=== PATIENT | male | born 1950 | race Caucasian/White ===

== ENCOUNTER → 2016-06-26 | Outpatient (CLI) | payer MEDICAID | END | disposition home or self-care (01) | LOC: LABWHC1 09:48 | PROVIDERS: ATTEND Internal Medicine | DX: D47.2 Monoclonal gammopathy (principal) | CPT/HCPCS: 36415; 84165; 86334 ==

== ENCOUNTER 2016-09-25 07:25 | Day surgery (SDC) | payer MEDICAID, OTHER ==
[2016-09-25 08:07] VITALS: RESP 16; TEMP 97.6
[2016-09-25] MEDS: CYCLOPENTOLATE 1% OPHTH SOLN 2 ML BTL OP ONE ×3 (08:11→08:35)
[2016-09-25] MEDS ORDERED: LACTATED RINGERS 1,000 ML IV SCH (08:18)
[2016-09-25] MEDS ORDERED: LIDOCAINE 1% 20 ML VIAL (10MG/ML) FOR IV START INTRADERMA PRN (08:18)
[2016-09-25] MEDS: FLURBIPROFEN 0.03% OPHTH DROPS 2.5 ML BTL OP ONE ×3 (08:19→08:38)
[2016-09-25] MEDS ORDERED: LIDOCAINE 1% 20 ML VIAL (10MG/ML) FOR IV START INTRADERMA ONE (08:21)
[2016-09-25] MEDS: PHENYLEPHRINE 10% OPHTH DROPS 5 ML BTL OP ONE ×3 (08:22→08:41)
[2016-09-25] MEDS ORDERED: LIDOCAINE 1% INJ 10MG/ML (20 ML MDV) ONE (08:52)
[2016-09-25] MEDS ORDERED: PROPOFOL 10 MG/ML 20 ML VIAL IV ONE (08:52)
[2016-09-25] MEDS ORDERED: TETRACAINE 0.5% OPHTH (PF) DROPS 4 ML BTL LEFT EYE ONE (08:52)
[2016-09-25] MEDS ORDERED: EPINEPHrine (PF) 0.5 ML in BALANCED SALT IRRIG SOLN COMB2 500 ML IRRIGATION ONE (09:07)
[2016-09-25] MEDS ORDERED: BALANCED SALT IRRIG SOLN COMB2 15 ML IRRIG.SOLN IRRIGATION ONE (09:15)
[2016-09-25] MEDS ORDERED: HYALURONATE SODIUM INTRAOCULAR 1 EACH SYRINGE (10MG/ML) INTRAOCULA ONE (09:16)
--- NOTE | 2016-09-25 09:18 | P.OP ---
Date of Procedure: 09/25/16 Procedure(s) Performed: PREOPERATIVE DIAGNOSIS: Cataract, left eye. POSTOPERATIVE DIAGNOSIS: Cataract, left eye. OPERATION: Phacoemulsification cataract, left eye. DESCRIPTION OF PROCEDURE: The patient was taken to the preoperative holding area. Intravenous Propofol was given so as to bring about adequate sedation. The following mixture was given for local anesthesia: 5 mL of 2% lidocaine, 5 mL of 0.75% Marcaine, and 1 mL of Wydase. Approximately 4 mL was injected in the retrobulbar space of the surgical eye. Additional 1 mL was then directed to the temporal area of the surgical eye. This was performed to allow adequate neurological block of the facial muscles. The patient was revived and then taken into the operative room. The patient was prepped and draped in the usual sterile manner for the operative eye. A lid speculum was put into position. The conjunctiva was resected back from the limbus in the 12 o'clock position. Bleeding was controlled with electrocautery. A #69 blade was then used and a half-thickness scleral incision approximately 1-mm posterior to the limbus was made on bare sclera. This was shelved in the clear cornea using a crescent knife. The steep axis of astigmatism was marked using a pre-inked corneal marking device. Next a 15-degree blade was used to make a stab incision at the 3 o'clock position at the corneolimbal interface. Keratome blade was then used and the superior wound was extended into the anterior chamber. Viscoelastic was injected into the anterior chamber and to maintain its form. Next, a cystotome was used and a continuous anterior capsulotomy was made without difficulty. Hydrodissection using a blunt cannula and BSS was performed. Phaco probe was then employed and a groove extending from 12 to 6 o' clock in the lens was created. A Adilson wand was used through the stab incision so as to perform a divide and conquer technique. Next an irrigation aspiration probe was utilized and any residual cortex was removed from the eye. Again, viscoelastic was injected into the anterior chamber. An GUME Symfony posterior chamber lens implant was placed in the cartridge and injected into the anterior chamber without difficulty. The Sinskey hook was utilized to spin the lens into position and this was again performed without any difficulty. The irrigation and aspiration probe was again employed and any residual viscoelastic was removed from the eye. Then BSS was injected into the limbal stab incision and the anterior chamber re-inflated. The conjunctiva was reapproximated using electrocautery. One drop of 0.25% Timoptic was placed over the corneal along with TobraDex ophthalmic ointment. Two sterile patches and a Tobar eye shield were taped into position. The patient was transported to the recovery room in stable condition. Pathology: none sent Condition: stable Disposition: same day
[2016-09-25 09:46] VITALS: BP 149/88; PULSE 46
[2016-09-25] MEDS ORDERED: GENTAMICIN/PREDNISOL AC OPHTH OINT 3.5GM OPHTHALMIC ONE (23:00)
[2016-09-25] MEDS ORDERED: TIMOLOL 0.5% OPHTH SOLN (PF) 0.2 ML DROPERETTE OP ONE (23:00)
[2016-09-25] MEDS ORDERED: BUPIVACAINE (PF) 0.75% 5 ML, LIDOCAINE 4% (PF) 5 ML, HYALURONIDASE, HUMAN RECOMB 150 UNIT MISCELLANE ONE ×3 (23:00)
== END 2016-09-25 10:06 | disposition home or self-care (01) ==
LOC: OR 07:25
PROVIDERS: ATTEND Ophthalmology
DX: H26.9 Unspecified cataract (principal); H52.201 Unspecified astigmatism, right eye; I10 Essential (primary) hypertension; E78.5 Hyperlipidemia, unspecified; N40.0 Benign prostatic hyperplasia without lower urinary tract symptoms; F32.9 Major depressive disorder, single episode, unspecified; Z79.82 Long term (current) use of aspirin; Z79.899 Other long term (current) drug therapy; Z88.0 Allergy status to penicillin; Z88.2 Allergy status to sulfonamides
CPT/HCPCS: 66984; V2787; C1780; J2001 ×2; J3470; J0171; J2704

== ENCOUNTER 2016-11-06 06:39 | Day surgery (SDC) | payer MEDICAID ==
[2016-11-02 16:46] VITALS: BMI 23.1
[2016-11-06] MEDS: FLURBIPROFEN 0.03% OPHTH DROPS 2.5 ML BTL OP ONE ×3 (06:09→07:09)
[~2016-11-06 06:39] MED LIST: LACTATED RINGERS 1,000 ML IV SCH; LIDOCAINE 1% 20 ML VIAL (10MG/ML) FOR IV START INTRADERMA PRN; ONDANSETRON 4 MG/2 ML VIAL IVP PRN
[2016-11-06] MEDS: CYCLOPENTOLATE 1% OPHTH SOLN 2 ML BTL OP ONE ×2 (06:48→07:06)
[2016-11-06 06:49] VITALS: RESP 16; TEMP 97.2
[2016-11-06] MEDS: PHENYLEPHRINE 10% OPHTH DROPS 5 ML BTL OP ONE ×2 (06:54→07:03)
[2016-11-06] MEDS ORDERED: MIDAZOLAM 2 MG/2 ML VIAL ONE (07:46)
[2016-11-06] MEDS ORDERED: LIDOCAINE 1% INJ 10MG/ML (20 ML MDV) ONE (07:46)
[2016-11-06] MEDS ORDERED: PROPOFOL 10 MG/ML 20 ML VIAL IV ONE (07:46)
[2016-11-06] MEDS ORDERED: BALANCED SALT IRRIG SOLN COMB2 15 ML IRRIG.SOLN INTRAOCULA ONE (07:52)
[2016-11-06] MEDS ORDERED: TETRACAINE 0.5% OPHTH (PF) DROPS 4 ML BTL RIGHT EYE ONE (07:53)
[2016-11-06] MEDS ORDERED: HYALURONATE SODIUM INTRAOCULAR 1 EACH SYRINGE (10MG/ML) INTRAOCULA ONE (07:53)
[2016-11-06] MEDS ORDERED: EPINEPHrine (PF) 0.5 ML in BALANCED SALT IRRIG SOLN COMB2 500 ML IRRIGATION ONE (08:01)
--- NOTE | 2016-11-06 08:17 | P.OP ---
Date of Procedure: 11/06/16 Preoperative Diagnosis: Postoperative Diagnosis: Procedure(s) Performed: PREOPERATIVE DIAGNOSIS: Cataract, right eye. POSTOPERATIVE DIAGNOSIS: Cataract, right eye. OPERATION: Phacoemulsification cataract, right eye. DESCRIPTION OF PROCEDURE: The patient was taken to the preoperative holding area. Intravenous Propofol was given so as to bring about adequate sedation. The following mixture was given for local anesthesia: 5 mL of 2% lidocaine, 5 mL of 0.75% Marcaine, and 1 mL of Wydase. Approximately 4 mL was injected in the retrobulbar space of the surgical eye. Additional 1 mL was then directed to the temporal area of the surgical eye. This was performed to allow adequate neurological block of the facial muscles. The patient was revived and then taken into the operative room. The patient was prepped and draped in the usual sterile manner for the operative eye. A lid speculum was put into position. The conjunctiva was resected back from the limbus in the 12 o'clock position. Bleeding was controlled with electrocautery. A #69 blade was then used and a half-thickness scleral incision approximately 1-mm posterior to the limbus was made on bare sclera. This was shelved in the clear cornea using a crescent knife. Next a 15-degree blade was used to make a stab incision at the 3 o' clock position at the corneolimbal interface. The steep axis of astigmatism was marked using a pre-inked corneal marking device. Keratome blade was then used and the superior wound was extended into the anterior chamber. Viscoelastic was injected into the anterior chamber and to maintain its form. Next, a cystotome was used and a continuous anterior capsulotomy was made without difficulty. Hydrodissection using a blunt cannula and BSS was performed. Phaco probe was then employed and a groove extending from 12 to 6 o' clock in the lens was created. A Adislon wand was used through the stab incision so as to perform a divide and conquer technique. Next an irrigation aspiration probe was utilized and any residual cortex was removed from the eye. Again, viscoelastic was injected into the anterior chamber. An GUME Symfony toric posterior chamber lens implant was placed in the cartridge and injected into the anterior chamber without difficulty. The Sinskey hook was utilized to spin the lens into position and this was again performed without any difficulty. The irrigation and aspiration probe was again employed and any residual viscoelastic was removed from the eye. Then BSS was injected into the limbal stab incision and the anterior chamber re-inflated. The conjunctiva was reapproximated using electrocautery. One drop of 0.25% Timoptic was placed over the corneal along with TobraDex ophthalmic ointment. Two sterile patches and a Tobar eye shield were taped into position. The patient was transported to the recovery room in stable condition. Implants: Pathology: none sent Condition: stable Disposition: same day Indications for Procedure: Operative Findings: Description of Procedure:
[2016-11-06 08:36] VITALS: BP 135/82; PULSE 48
[2016-11-06] MEDS ORDERED: TIMOLOL 0.5% OPHTH SOLN (PF) 0.2 ML DROPERETTE OP ONE (23:00)
[2016-11-06] MEDS ORDERED: GENTAMICIN/PREDNISOL AC OPHTH OINT 3.5GM OPHTHALMIC ONE (23:00)
[2016-11-06] MEDS ORDERED: BUPIVACAINE (PF) 0.75% 5 ML, LIDOCAINE 4% (PF) 5 ML, HYALURONIDASE, HUMAN RECOMB 150 UNIT MISCELLANE ONE ×3 (23:00)
== END 2016-11-06 08:57 | disposition home or self-care (01) ==
LOC: OR 06:39
PROVIDERS: ATTEND Ophthalmology
DX: H26.9 Unspecified cataract (principal); I10 Essential (primary) hypertension; F32.9 Major depressive disorder, single episode, unspecified; K21.9 Gastro-esophageal reflux disease without esophagitis; N42.9 Disorder of prostate, unspecified; Z88.2 Allergy status to sulfonamides; Z88.0 Allergy status to penicillin; Z79.82 Long term (current) use of aspirin; Z79.899 Other long term (current) drug therapy; Z82.49 Family history of ischemic heart disease and other diseases of the circulatory system
CPT/HCPCS: 66984; V2787; C1780; J2001 ×2; J2250; J3470; J0171; J2704

== ENCOUNTER → 2016-12-18 | Outpatient (CLI) | payer MEDICAID ==
[2016-12-18 10:28] LABS: ALT 31 U/L (21-72); AST 26 U/L (17-59); Alkaline Phosphatase 44 U/L (38-126); Anion Gap 11 mmol/L; Blood Urea Nitrogen 24 mg/dL (9-20); Calcium 9.5 mg/dL (8.4-10.2); Carbon Dioxide 24 mmol/L (22-30); Chloride 110 mmol/L (98-107); Cholesterol 162 mg/dL (<200); Glucose 90 mg/dL (74-99); HDL Cholesterol 55 mg/dL (40-60); Non-African American GFR(MDRD) >60 (>60 ml/min/1.73 sqM); Sodium 145 mmol/L (137-145); Total Bilirubin 0.6 mg/dL (0.2-1.3); Total Protein 9.1 g/dL (6.3-8.2); Triglycerides 110 mg/dL (<150)
[2016-12-18 10:36] LABS: Basophils % (A) 1 %; CH 31.7; CHCM 32.3; Eosinophils # (A) 0.2 k/uL (0-0.7); Eosinophils % (A) 4 %; HCT 40.6 % (39.0-53.0); HDW 2.03; HGB 13.5 gm/dL (13.0-17.5); Large Platelets Flag Moderate; Luc # (Auto) 0.16; Luc % (Auto) 2; Lymphocytes # (A) 1.6 k/uL (1.0-4.8); Lymphocytes % (A) 25 %; MCH 32.8 pg (25.0-35.0); MCHC 33.3 g/dL (31.0-37.0); MCV 98.6 fL (80.0-100.0); Mean Platelet Volume 12.3; Monocytes # (A) 0.4 k/uL (0-1.0); Monocytes % (A) 7 %; Neutrophils % (A) 62 %; RBC 4.12 m/uL (4.30-5.90); RDW 13.5 % (11.5-15.5); WBC 6.5 k/uL (3.8-10.6); WBC (Perox) 6.19
[2016-12-18 10:56] LABS: C Reactive Protein <5.0 mg/L (<10.0)
[2016-12-18 11:16] LABS: Hepatitis C Virus IgG Ab Negative (Negative); Hepatitis C Virus IgG Index 0.32
[2016-12-18 11:20] LABS: Prostate Specific Antigen 1.33 ng/mL (0.00-4.00)
[2016-12-18 11:30] LABS: Large Platelets Present; Manual Review Performed; RBC Morphology Normal
[2016-12-18 12:15] LABS: Erythrocyte Sedimentation Rate 41 mm/hr (0-15)
== END | disposition home or self-care (01) ==
LOC: LABWHC1 08:50
PROVIDERS: ATTEND Internal Medicine
DX: E78.5 Hyperlipidemia, unspecified (principal); K90.0 Celiac disease; I10 Essential (primary) hypertension; E55.9 Vitamin D deficiency, unspecified; Z13.9 Encounter for screening, unspecified; Z12.5 Encounter for screening for malignant neoplasm of prostate
CPT/HCPCS: 36415; 80053; 80061; 82306; 84153; 84165; 85025; 85652; 86140; 86803

== ENCOUNTER → 2017-03-19 | Outpatient (CLI) | payer MEDICAID | END | disposition home or self-care (01) | LOC: LABWHC1 09:23 | PROVIDERS: ATTEND Internal Medicine | DX: K52.9 Noninfective gastroenteritis and colitis, unspecified (principal) | CPT/HCPCS: 87328; 87329 ==

== ENCOUNTER → 2017-04-05 | Outpatient (CLI) | payer MEDICAID | END | disposition home or self-care (01) | LOC: PTMAIN 09:29 | PROVIDERS: ATTEND Otolaryngology | DX: J37.0 Chronic laryngitis (principal); K21.9 Gastro-esophageal reflux disease without esophagitis | CPT/HCPCS: 31579 ==

== ENCOUNTER 2017-04-23 11:28 | Day surgery (SDC) | payer MEDICAID ==
[2017-04-16 15:41] VITALS: BMI 23.6
[~2017-04-23 11:28] MED LIST changes: -LIDOCAINE 1% 20 ML VIAL (10MG/ML) FOR IV START INTRADERMA PRN; -ONDANSETRON 4 MG/2 ML VIAL IVP PRN
[2017-04-23 12:04] VITALS: RESP 16; TEMP 98.1
[2017-04-23] MEDS ORDERED: LIDOCAINE 1% 20 ML VIAL (10MG/ML) FOR IV START INTRADERMA ONE (12:06)
[2017-04-23] MEDS ORDERED: PROPOFOL 10 MG/ML 20 ML VIAL IV ONE (12:13)
[2017-04-23] MEDS ORDERED: GLYCOPYRROLATE 0.2 MG/ML 2 ML VIAL ONE (12:13)
[2017-04-23] MEDS ORDERED: LIDOCAINE 1% INJ 10MG/ML (20 ML MDV) ONE (12:13)
--- NOTE | 2017-04-23 12:35 | P.PCN ---
Date of Procedure: 04/23/17 Preoperative Diagnosis: Celiac disease Postoperative Diagnosis: Celiac disease Procedure(s) Performed: EGD with biopsy Anesthesia: MAC Surgeon: Vasile Lacy Condition: stable Disposition: PACU Indications for Procedure: Patient has a history of celiac disease he has been having recent episodes of diarrhea which is unusual for him he discovers benefits alternatives to EGD with biopsy and clearance of bleeding infection damage surrounding tissue need further operation he stated he understood these risks agreed and consented the procedure informed consent was obtained Operative Findings: Findings consistent with celiac disease Description of Procedure: Patient brought to the Endo suite remained in this left lateral decubitus position underwent sedation per department of anesthesia.Endoscope was passed through the oropharynx down the esophagus with ease through the stomach and the first and second portion of duodenum. There was some inflammation in the duodenum this was biopsied with cold forceps biopsies. Multiple biopsies were taken of the first and second portion. Scope was then withdrawn and the gastric antrum where biopsy was taken to rule out H. pylori. The scope was retroflexed and no abnormalities were noted. The scope was then slowly withdrawn into the esophagus the GE junction was within normal limits however there was a small 5 mm mucosal lesions in the esophagus. Several of these were biopsied. Patient tolerated procedure well there is no apparent comp locations
--- NOTE | 2017-04-23 13:00 | P.OP ---
Date of Procedure: 04/23/17 Preoperative Diagnosis: Screening. Family history of colon CA in a parent. History of celiac disease. Postoperative Diagnosis: Fairly normal colonoscopy. No evidence of any significant inflammatory bowel disease or polyps or neoplasms. Procedure(s) Performed: Colonoscopy and cold biopsies of the descending colon and rectum. Surgeon: Abdiaziz Mejía Estimated Blood Loss (ml): 0 Pathology: other (Descending colon and rectal biopsies) Condition: stable Disposition: same day Indications for Procedure: Screening. Family history of colon CA in apparent. Personal history of celiac disease with the change in bowel habits related to diet. Operative Findings: Fairly normal colonoscopy. Inflammatory condition. No polyps or neoplasms. Description of Procedure: With the patient in the left lateral position rectal digital examination was normal. There are no palpable masses. No prostatic masses. The video colonoscope was inserted transanally and advanced all the way to the cecum which was entered without visualized the as was the ileocecal valve and appendiceal orifice. The mucosa were thoroughly examined. Findings normal colonoscopy. No polyps neoplasms or any other mucosal abnormalities were found. Recommend a follow-up colonoscopy in about 5 years. Continue gluten-free diet.
[2017-04-23 13:05] VITALS: PULSE 63
[2017-04-23 13:12] VITALS: BP 168/89
== END 2017-04-23 13:36 | disposition home or self-care (01) ==
LOC: ORWHC2ENDO 11:28
PROVIDERS: ATTEND Surgery
DX: R19.7 Diarrhea, unspecified (principal); K90.0 Celiac disease; K29.80 Duodenitis without bleeding; K29.50 Unspecified chronic gastritis without bleeding; Z80.0 Family history of malignant neoplasm of digestive organs; E78.5 Hyperlipidemia, unspecified; I10 Essential (primary) hypertension; K21.9 Gastro-esophageal reflux disease without esophagitis; G57.00 Lesion of sciatic nerve, unspecified lower limb; Z79.899 Other long term (current) drug therapy; Z88.0 Allergy status to penicillin; Z88.2 Allergy status to sulfonamides
CPT/HCPCS: 88305; 88342; 45380; 43239; J2001; J2704

== ENCOUNTER → 2017-05-21 | Outpatient (CLI) | payer MEDICAID ==
[2017-05-21 09:39] LABS: Basophils % (A) 1 %; CHCM 33.3; Eosinophils # (A) 0.2 k/uL (0-0.7); Eosinophils % (A) 3 %; HCT 41.1 % (39.0-53.0); HGB 13.5 gm/dL (13.0-17.5); Luc # (Auto) 0.26; Luc % (Auto) 4; Lymphocytes # (A) 1.8 k/uL (1.0-4.8); Lymphocytes % (A) 26 %; MCH 31.7 pg (25.0-35.0); MCHC 32.8 g/dL (31.0-37.0); MCV 96.7 fL (80.0-100.0); Mean Platelet Volume 9.7; Monocytes # (A) 0.5 k/uL (0-1.0); Monocytes % (A) 7 %; Neutrophils # (A) 4.2 k/uL (1.3-7.7); Neutrophils % (A) 60 %; RBC 4.25 m/uL (4.30-5.90); RDW 12.9 % (11.5-15.5); WBC (Perox) 6.96
[2017-05-21 09:54] LABS: ALT 49 U/L (21-72); AST 29 U/L (17-59); Alkaline Phosphatase 45 U/L (38-126); Anion Gap 8 mmol/L; Blood Urea Nitrogen 27 mg/dL (9-20); Calcium 9.9 mg/dL (8.4-10.2); Carbon Dioxide 25 mmol/L (22-30); Chloride 108 mmol/L (98-107); Glucose 95 mg/dL (74-99); Non-African American GFR(MDRD) 51 (>60 ml/min/1.73 sqM); Potassium 4.8 mmol/L (3.5-5.1); Sodium 141 mmol/L (137-145); Total Bilirubin 0.8 mg/dL (0.2-1.3)
[2017-05-21 11:19] LABS: Erythrocyte Sedimentation Rate 42 mm/hr (0-15)
== END | disposition home or self-care (01) ==
LOC: LABWHC1 09:00
PROVIDERS: ATTEND Internal Medicine
DX: K90.0 Celiac disease (principal); K52.9 Noninfective gastroenteritis and colitis, unspecified
CPT/HCPCS: 36415; 80053; 84165; 84443; 85025; 85652

== ENCOUNTER → 2017-05-28 | Outpatient (CLI) | payer MEDICAID | END | disposition home or self-care (01) | LOC: LABWHC1 17:08 | PROVIDERS: ATTEND Internal Medicine | DX: R79.89 Other specified abnormal findings of blood chemistry (principal) | CPT/HCPCS: 36415; 82565; 84520 ==

== ENCOUNTER → 2017-06-22 | Outpatient (CLI) | payer MEDICAID ==
[2017-06-22 12:34] LABS: Blood Urea Nitrogen 26 mg/dL (9-20)
== END | disposition home or self-care (01) ==
LOC: LABWHC1 11:55
PROVIDERS: ATTEND Urology
DX: R79.89 Other specified abnormal findings of blood chemistry (principal)
CPT/HCPCS: 36415; 82565; 84520

== ENCOUNTER → 2017-07-30 | Outpatient (CLI) | payer MEDICAID | LOC: LABWHC1 13:19 | PROVIDERS: ATTEND Urology | DX: N17.9 Acute kidney failure, unspecified (principal) | CPT/HCPCS: 36415; 82565; 84520 ==

== ENCOUNTER → 2017-11-01 | Outpatient (CLI) | payer MEDICAID ==
[2017-11-01 10:54] LABS: Appearance,Urine Clear (Clear); Bilirubin,Urine Negative (Negative); Blood,Urine Negative (Negative); Color,Urine Light Yellow; Glucose,Urine (UA) Negative (Negative); Ketones,Urine Negative (Negative); Leukocyte Esterase,Urine Small (Negative); Mucus,Urine Rare /hpf; Nitrite,Urine Negative (Negative); PH, Urine 5.5 (5.0-8.0); Protein,Urine Negative (Negative); Specific Gravity,Urine 1.008 (1.001-1.035); Urobilinogen,Urine <2.0 mg/dL (<2.0); WBC,Urine 9 /hpf (0-5)
[2017-11-01 11:01] LABS: Basophils % (A) 0 %; Eosinophils # (A) 0.2 k/uL (0-0.7); Eosinophils % (A) 3 %; HCT 42.6 % (39.0-53.0); HGB 13.9 gm/dL (13.0-17.5); Lymphocytes # (A) 1.6 k/uL (1.0-4.8); Lymphocytes % (A) 24 %; MCH 31.4 pg (25.0-35.0); MCHC 32.6 g/dL (31.0-37.0); MCV 96.2 fL (80.0-100.0); Mean Platelet Volume 11.2; Monocytes # (A) 0.5 k/uL (0-1.0); Monocytes % (A) 7 %; Neutrophils # (A) 4.2 k/uL (1.3-7.7); Neutrophils % (A) 63 %; Platelet Count 145 k/uL (150-450); RBC 4.43 m/uL (4.30-5.90); RDW 13.2 % (11.5-15.5); WBC 6.7 k/uL (3.8-10.6)
[2017-11-01 11:02] LABS: Albumin 4.9 g/dL (3.5-5.0); Calcium 9.8 mg/dL (8.4-10.2); Potassium 5.1 mmol/L (3.5-5.1); Total Bilirubin 0.8 mg/dL (0.2-1.3)
[2017-11-01 13:04] LABS: Erythrocyte Sedimentation Rate 86 mm/hr (0-15)
[2017-11-01 18:55] LABS: Vitamin D 25 Hydroxy 48.2 ng/mL (30.0-100.0)
[2017-11-01 19:09] LABS: Protein, Total 9.6 g/dL (6.2-8.2)
[2017-11-04 11:06] LABS: Oat IgE Class CLASS 0
[2017-11-04 11:25] LABS: Albumin 4.77 g/dL (3.80-4.90); Gamma Globulin 3.21 g/dL (0.70-1.50)
[2017-11-05 12:06] LABS: Oat IgG 5.5 mcg/mL (< 2.0)
== END | disposition home or self-care (01) ==
LOC: LABWHC1 10:06
PROVIDERS: ATTEND Internal Medicine
DX: K90.0 Celiac disease (principal); I10 Essential (primary) hypertension; E55.9 Vitamin D deficiency, unspecified
CPT/HCPCS: 36415; 80053; 80061; 81001; 82306; 82607; 84165; 85025; 85652; 86001; 86003

== ENCOUNTER → 2018-04-08 | Outpatient (CLI) | payer MEDICARE ==
[2018-04-08 16:34] LABS: Basophils % (A) 0 %; Eosinophils # (A) 0.1 k/uL (0-0.7); Eosinophils % (A) 1 %; HCT 43.6 % (39.0-53.0); Lymphocytes # (A) 1.7 k/uL (1.0-4.8); Lymphocytes % (A) 20 %; MCH 31.9 pg (25.0-35.0); MCV 99.4 fL (80.0-100.0); Mean Platelet Volume 10.9; Monocytes # (A) 0.5 k/uL (0-1.0); Monocytes % (A) 6 %; Neutrophils % (A) 70 %; Platelet Count 134 k/uL (150-450); RBC 4.39 m/uL (4.30-5.90); RDW 13.2 % (11.5-15.5); WBC 8.6 k/uL (3.8-10.6)
[2018-04-08 17:33] LABS: Erythrocyte Sedimentation Rate 36 mm/hr (0-15)
[2018-04-09 11:24] LABS: Anion Gap 7.1 mmol/L (4.00-12.00); Calcium 9.6 mg/dL (8.7-10.3); Carbon Dioxide 24.9 mmol/L (21.6-31.8); Potassium 4.6 mmol/L (3.5-5.5)
== END ==
LOC: LABWHC1 15:46
PROVIDERS: ATTEND Internal Medicine
DX: K90.0 Celiac disease (principal)
CPT/HCPCS: 36415; 80048; 85025; 85652

== ENCOUNTER → 2018-08-06 | Outpatient (CLI) | payer MEDICARE | END | disposition home or self-care (01) | LOC: LABWHC1 15:47 | PROVIDERS: ATTEND Internal Medicine | DX: Z53.9 Procedure and treatment not carried out, unspecified reason (principal) ==

== ENCOUNTER → 2018-08-08 | Outpatient (CLI) | payer MEDICARE ==
[2018-08-08 10:42] LABS: Basophils % (A) 0 %; Eosinophils # (A) 0.2 k/uL (0-0.7); Eosinophils % (A) 2 %; HCT 43.3 % (39.0-53.0); Lymphocytes # (A) 1.7 k/uL (1.0-4.8); Lymphocytes % (A) 18 %; MCH 31.7 pg (25.0-35.0); MCHC 32.4 g/dL (31.0-37.0); MCV 97.7 fL (80.0-100.0); Mean Platelet Volume 9.5; Monocytes # (A) 0.7 k/uL (0-1.0); Monocytes % (A) 8 %; Neutrophils # (A) 6.4 k/uL (1.3-7.7); Neutrophils % (A) 69 %; Platelet Count 155 k/uL (150-450); RBC 4.43 m/uL (4.30-5.90); RDW 12.8 % (11.5-15.5); WBC 9.2 k/uL (3.8-10.6)
[2018-08-08 10:58] LABS: Amorphous Sediment,Urine Rare /hpf; Appearance,Urine Cloudy (Clear); Bilirubin,Urine Negative (Negative); Blood,Urine Small (Negative); Color,Urine Dark Brown; Glucose,Urine (UA) Negative (Negative); Ketones,Urine Negative (Negative); Leukocyte Esterase,Urine Large (Negative); Mucus,Urine Moderate /hpf; Nitrite,Urine Positive (Negative); PH, Urine 5.5 (5.0-8.0); Protein,Urine 1+ (Negative); RBC,Urine 17 /hpf (0-5); Specific Gravity,Urine 1.015 (1.001-1.035); Squamous Epithelial Cell,Urine <1 /hpf (0-4); WBC,Urine >182 /hpf (0-5)
[2018-08-08 13:45] LABS: Erythrocyte Sedimentation Rate 50 mm/hr (0-15)
[2018-08-08 16:53] LABS: Albumin 4.3 g/dL (3.80-4.90); Albumin/Globulin Ratio 1.13 (1.60-3.17); Anion Gap 5.7 mmol/L (4.00-12.00); Calcium 9.2 mg/dL (8.7-10.3); Carbon Dioxide 23.3 mmol/L (21.6-31.8); Globulin 3.8 g/dL (1.6-3.3); LDL Cholesterol,Calculated 59.8 mg/dL (0.0-131.0); Potassium 4.2 mmol/L (3.5-5.5); Total Protein 8.1 g/dL (6.2-8.2); VLDL Calculation 32.2 mg/dL (5.00-40.00)
[2018-08-08 17:04] LABS: Protein, Total 7.9 g/dL (6.2-8.2)
[2018-08-11 12:53] LABS: Albumin 3.78 g/dL (3.80-4.90); Gamma Globulin 2.42 g/dL (0.70-1.50)
== END ==
LOC: LABWHC1 10:10
PROVIDERS: ATTEND Internal Medicine
DX: K52.9 Noninfective gastroenteritis and colitis, unspecified (principal); K90.0 Celiac disease; I10 Essential (primary) hypertension; Z12.5 Encounter for screening for malignant neoplasm of prostate
CPT/HCPCS: 36415; 80053; 80061; 81001; 84153; 84165; 84443; 85025; 85652

== ENCOUNTER → 2018-08-29 | Outpatient (CLI) | payer MEDICARE ==
--- NOTE | 2018-08-29 18:11 | US ---
EXAMINATION TYPE: US kidneys/renal and bladder DATE OF EXAM: 08/29/2018 COMPARISON: US 05/22/2016 CLINICAL HISTORY: N39.0 UTI. EXAM MEASUREMENTS: Right Kidney: 11.3 x 5.1 x 4.3 cm Left Kidney: 11.4 x 5.5 x 5.2 cm Post Void Residual Volume: 29.9 mL Right Kidney: No hydronephrosis or masses seen Left Kidney: No hydronephrosis or masses seen Bladder: wnl Bilateral Jets seen: Yes Normal Post Void Residual: Yes There is no evidence for hydronephrosis at this point in time. No nephrolithiasis is seen. No richi s are identified. The urinary bladder is anechoic. Bilateral ureteral jets are seen. Cortical medullary differentiation maintained within the kidneys. IMPRESSION: No significant abnormalities evident.
== END | disposition home or self-care (01) ==
LOC: RADUSWWP 12:19
PROVIDERS: ATTEND Internal Medicine
DX: N39.0 Urinary tract infection, site not specified (principal)
CPT/HCPCS: 76770

== ENCOUNTER → 2019-04-24 | Outpatient (CLI) | payer MEDICARE ==
[2019-04-24 14:28] LABS: HCT 37.8 % (39.0-53.0); HGB 12.8 gm/dL (13.0-17.5); MCH 32.2 pg (25.0-35.0); MCHC 33.7 g/dL (31.0-37.0); MCV 95.6 fL (80.0-100.0); Mean Platelet Volume 10.2; Platelet Count 148 k/uL (150-450); RBC 3.96 m/uL (4.30-5.90); RDW 13.2 % (11.5-15.5); WBC 6.8 k/uL (3.8-10.6)
[2019-04-24 17:02] LABS: Erythrocyte Sedimentation Rate 56 mm/hr (0-15)
[2019-04-24 20:00] LABS: Gliadin AB IgA, Deaminated NEGATIVE (NEGATIVE); Gliadin AB IgA, Unit <0.2 U/mL; Gliadin AB IgG, Deaminated NEGATIVE (NEGATIVE)
[2019-04-24 20:03] LABS: ALT 25 U/L (10-49); AST 27 U/L (14-35); African American GFR (CKD) 71.1 (60.0-200.0); Albumin/Globulin Ratio 1.11 (1.60-3.17); Alkaline Phosphatase 45 U/L (41-126); C Reactive Protein <0.4 mg/dL (0.0-0.8); Carbon Dioxide 24.3 mmol/L (21.6-31.8); Chloride 111 mmol/L (96-109); Globulin 3.6 g/dL (1.6-3.3); Glucose 102 mg/dL (70-110); Non-African American GFR(CKD) 61.3 (60.0-200.0); Potassium 3.8 mmol/L (3.5-5.5); Sodium 141 mmol/L (135-145); Total Bilirubin 0.5 mg/dL (0.3-1.2); Total Protein 7.6 g/dL (6.2-8.2)
== END | disposition home or self-care (01) ==
LOC: LABWHC1 14:03
PROVIDERS: ATTEND Internal Medicine
DX: R19.7 Diarrhea, unspecified (principal); R19.4 Change in bowel habit
CPT/HCPCS: 36415; 80053; 83516; 83993; 84439; 84443; 85027; 85652; 86140; 87045; 87046; 87324; 87328; 87329

== ENCOUNTER → 2019-05-19 | Outpatient (CLI) | payer MEDICARE ==
[2019-05-19 16:30] LABS: Protein, Total 7.9 g/dL (6.2-8.2)
[2019-05-19 16:31] LABS: Chol/HDL Ratio 2.51; LDL Cholesterol,Calculated 41.6 mg/dL (0.0-131.0); VLDL Calculation 26.4 mg/dL (5.00-40.00)
== END | disposition home or self-care (01) ==
LOC: LABWHC1 09:56
PROVIDERS: ATTEND Internal Medicine
DX: E78.5 Hyperlipidemia, unspecified (principal); E55.9 Vitamin D deficiency, unspecified; K52.9 Noninfective gastroenteritis and colitis, unspecified
CPT/HCPCS: 36415; 80061; 82306; 84165; 85652

== ENCOUNTER → 2021-01-25 | Outpatient (CLI) | payer MEDICARE | END | disposition home or self-care (01) | LOC: LABWHC1 16:00 | PROVIDERS: ATTEND Internal Medicine Gastroenterology | DX: K90.0 Celiac disease (principal); R19.7 Diarrhea, unspecified; R63.4 Abnormal weight loss | CPT/HCPCS: 36415; 85652; 86140 ==

== ENCOUNTER 2022-08-31 12:46 | Day surgery (SDC) | payer MEDICARE ==
[2022-08-31 13:08] VITALS: TEMP 96.7
[2022-08-31 13:22] LABS: Glucose,Whole Blood 104 mg/dL (70-110)
[2022-08-31] MEDS ORDERED: PROPOFOL 10 MG/ML 20 ML VIAL IV ONE (14:02)
--- NOTE | 2022-08-31 14:20 | P.PCN ---
Date of Procedure: 08/31/22 Procedure(s) Performed: BRIEF HISTORY: Patient is a 71-year-old pleasant male scheduled for an elective colonoscopy as a part of chronic diarrhea for the last 6 weeks duration. He was having bowel movements anywhere from 10-15 a day which are loose to watery in consistency but no blood or mucus in stool. He does have history of celiac disease diagnosed several years ago and has been on a strict gluten-free diet. PROCEDURE PERFORMED: Colonoscopy with multiple random biopsies. PREOPERATIVE DIAGNOSIS: Chronic diarrhea of 6 weeks duration. IV sedation per Anesthesia. PROCEDURE: After informed consent was obtained, the patient, was brought into the endoscopy unit. IV sedation was administered by Anesthesia under continuous monitoring. Digital rectal examination was normal. Initially the Olympus CF-160 flexible video colonoscope was then inserted in the rectum, gradually advanced into the cecum without any difficulty. Careful examination was performed as the scope was gradually being withdrawn. Ileocecal valve and the appendiceal orifice were visualized and appeared normal. Prep was excellent. Mucosa of the cecum, ascending colon, transverse colon, descending colon, sigmoid colon, and rectum appeared normal. Random biopsies were done from ascending and descending colon to rule out microscopic/collagenous colitis Retroflexion was performed in the rectum and no lesions were seen. The patient tolerated the procedure well. IMPRESSION: Normal-appearing colon from rectum to cecum no evidence of colitis or colorectal neoplasia. RECOMMENDATIONS: Findings of this examination were discussed with the patient as well as his family. He was advised to follow with the biopsy results. In the meantime I recommended that he use [id number] Imodium, one to 2 tablets 4 times daily to control the symptoms..
[2022-08-31 14:28] VITALS: RESP 16
[2022-08-31 15:00] VITALS: BP 133/68; PULSE 62
== END 2022-08-31 15:30 | disposition home or self-care (01) ==
LOC: ORWHC2ENDO 12:46
PROVIDERS: ATTEND Internal Medicine Gastroenterology
DX: K52.9 Noninfective gastroenteritis and colitis, unspecified (principal); I10 Essential (primary) hypertension; E78.5 Hyperlipidemia, unspecified; K21.9 Gastro-esophageal reflux disease without esophagitis; N40.0 Benign prostatic hyperplasia without lower urinary tract symptoms; K90.0 Celiac disease; Z88.0 Allergy status to penicillin; Z88.2 Allergy status to sulfonamides; Z79.899 Other long term (current) drug therapy
CPT/HCPCS: 88305; 45380; J2704

== ENCOUNTER → 2023-06-25 | Outpatient (CLI) | payer MEDICARE ==
--- NOTE | 2023-06-25 16:23 | P.SLEEP ---
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 The patient's has noted that the patient is excessively snoring and is having episodes of apnea during sleep. He occasionally wakes himself from a loud snore and wakes up choking and gasping for air. As such, sleep apnea was suspected and the patient was referred to me for further evaluation. The patient is going to bed at around 1 AM and he is getting out of bed at around 10 PM. In the afternoon, he takes the dog out for a walk and following that he takes a nap and those naps can last up to an hour sometimes. He is feeling fatigued and tired during the day. He gets himself busy by playing the piano and late in the evening he reads books and listens to music. No history of any nocturia. No grinding of the teeth. No restlessness in lower extremities. No history of any active anxiety or depression. No panic attacks. No congestion or heart failure. No stroke. No history of any atrial fibrillation. No recent weight gain or weight loss. No history of any motor vehicle accidents because of feeling drowsy or sleepy. No sleep paralysis or hallucinations or cataplexy. Past medical history includes history of colitis, hyperlipidemia, BPH Past surgical history includes colonoscopy, cataract surgery bilaterally and hernia repair Drug allergy to sulfa Outpatient medication include Lipitor 10 mg p.o. daily, Celexa 20 mg p.o. daily, Flomax 0.4 mg twice a day, fludrocortisone 0.1 mg half a tablet twice a day, hydrocortisone 5 mg p.o. twice a day and Protonix 40 mg p.o. daily. He also uses Flonase on an as-needed basis and other supplements and pfyo-zoo-qsqvnko medication including Tylenol. Social history the patient is a non-smoker. No send alcoholism. No history of any drugs. He drinks 2 cups of coffee in the morning and 1 cup of tea in the afternoon. Family history is negative for any sleep breathing disorder or sleep apnea. His mother had colon and pancreatic cancer. Father had heart disease. Grandmother had thyroid problems. Review of systems. 14 point review of system was done and the positive findings were mentioned above history of present illness. Note that the patient does not have any major daytime sleepiness. However he takes naps during the day as he feels fatigued. His current [place] score is at 7. He can easily fall asleep. No issues with memory or concentration. No seizure activity. No head trauma. No headaches. He sleeps on his back and he takes a nap during the day. BP is 163/92 with a pulse of 58 and respiration of 16 and a saturation of 95% on room air oxygen. Weight is 148 and his [place] score is at 7. Temperature is 97.9. Body mass index is 23.5 and the patient's neck size is 15 inches. Height is 5 6 The patient appeared well nourished and normally developed. Vital signs as doc umented. Head exam is unremarkable. No scleral icterus or corneal arcus noted. Neck is without jugular venous distension, thyromegaly, or carotid bruits. The patient has an overbite with some limited scarring the posterior pharynx with a Mallampati class II. Carotid upstrokes are brisk bilaterally. Lungs are clear to auscultation and percussion. Cardiac exam reveals the PMI to be normally sized and situated. Rhythm is regular. First and second heart sounds normal. No murmurs, rubs or gallops. Abdominal exam reveals normal bowel sounds, no masses, no organomegaly and no aortic enlargement. Extremities are nonedematous and both femoral and pedal pulses are normal. Examination of the skin revealed no evidence of significant rashes, suspicious appearing nevi or other concerning lesions. Neurologically, the patient is awake and alert and the patient does not have any focal neurological deficit. Cranial nerves are essentially intact. Assessment Chronic fatigue and sleepiness along with symptoms of snoring and recognized apneas by the . Rule out underlying obstructive sleep apnea. Current [place] score is at 7. On examination, he has a Mallampati class II with overbite. 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 This will be good opportunity to evaluate his sleep architecture and at the same time rule out the possibility of underlying obstructive sleep apnea. The patient is going to undergo a polysomnography and following that I am going to contact him back to discuss the results and treatment options. Meanwhile, he has good sleep hygiene measures. He is sleeping good 9 to 10 hours on a daily basis. Medications were reviewed. Maintain regular sleep schedule. Maintain good sleep hygiene measures. Will continue to follow. Past Medical History Past Medical History: Cancer, GERD/Reflux, Hyperlipidemia, Hypertension, Memory Impairment, Prostate Disorder Additional Past Medical History / Comment(s): CELIAC DISEASE. skin cancer, BPH. recent hx. of frequent severe diarrhea for about 6 weeks, not happening now, no longer needing BP med, states takes steroid for low BP & slow heart rate, hx. of low platelets-sees Dr. Toth History of Any Multi-Drug Resistant Organisms: None Reported Past Surgical History: Appendectomy Additional Past Surgical History / Comment(s): cuca cataracts removed, colo noscopy Past Anesthesia/Blood Transfusion Reactions: No Reported Reaction Smoking Status: Former smoker - Past Family History Mother Family Medical History: Cancer Medications and Allergies Home Medications Medication Instructions Recorded Confirmed Type Atorvastatin [Lipitor] 10 mg PO HS 09/25/16 08/30/22 History Escitalopram Oxalate [Lexapro] 20 mg PO DAILY 09/25/16 08/30/22 History Tamsulosin HCl [Flomax] 0.4 mg PO DAILY 09/25/16 08/30/22 History Cholecalciferol [Vitamin D3 (25 25 mcg PO DAILY 08/30/22 08/30/22 History Mcg = 1000 Iu)] Eluxadoline [Viberzi] 100 mg PO DAILY 08/30/22 08/30/22 History Fludrocortisone [Florinef] 0.05 mg PO DAILY 08/30/22 08/30/22 History Glucosa Fischer 2Kcl/Chondroitin Fischer 1 each PO DAILY 08/30/22 08/30/22 History [Glucosamine-Chondroitin Cap] Hydrocortisone [Cortef] 5 mg PO DAILY 08/30/22 08/30/22 History L.acidoph,Paracasei, B.lactis 1 each PO DAILY 08/30/22 08/30/22 History [Probiotic] Multivitamins, Thera [Multivitamin 1 tab PO DAILY 08/30/22 08/30/22 History (formulary)] [place]-3/Dha/Epa/Fish Oil [Fish Oil 1 each PO DAILY 08/30/22 08/30/22 History 1,000 mg Softgel] Pantoprazole [Protonix] 40 mg PO DAILY 08/30/22 08/30/22 History Ubidecarenone [Co Q-10] 100 mg PO DAILY 08/30/22 08/30/22 History Vitamin B Complex 1 each PO DAILY 08/30/22 08/30/22 History Allergies Allergy/AdvReac Type Severity Reaction Status Date / Time Penicillins Allergy Rash/Hives Verified 08/31/22 13:02 Sulfa (Sulfonamide Allergy Unknown Verified 08/31/22 13:02 Antibiotics) Sleep Note - Sleep Note Sleep Note: Temperature: Pulse Rate: Respiratory Rate: Blood Pressure: SpO2: Height: Weight: BMI: Neck Circumference:
== END ==
LOC: 3 N SLEEP 14:44
PROVIDERS: ATTEND Internal Medicine Critical Care Medicine
DX: I10 Essential (primary) hypertension (principal); N40.0 Benign prostatic hyperplasia without lower urinary tract symptoms; E78.5 Hyperlipidemia, unspecified; K21.9 Gastro-esophageal reflux disease without esophagitis; R53.82 Chronic fatigue, unspecified; Z87.19 Personal history of other diseases of the digestive system; Z87.891 Personal history of nicotine dependence; Z85.828 Personal history of other malignant neoplasm of skin; Z79.899 Other long term (current) drug therapy; Z88.0 Allergy status to penicillin; Z88.2 Allergy status to sulfonamides
CPT/HCPCS: 99211

== ENCOUNTER 2023-07-03 08:44 | Day surgery (SDC) | payer MEDICARE ==
[2023-07-01 16:32] VITALS: BMI 23.1
[~2023-07-03 08:44] MED LIST changes: -LACTATED RINGERS 1,000 ML IV SCH; +LIDOCAINE 1% (10MG/ML) FOR IV START INTRADERMA PRN
[2023-07-03] MEDS: LACTATED RINGERS 1,000 ML IV SCH (09:18)
[2023-07-03 09:29] LABS: Glucose,Whole Blood 88 mg/dL (70-110)
[2023-07-03 09:43] VITALS: TEMP 97
[2023-07-03] MEDS ORDERED: PROPOFOL 10 MG/ML 20 ML VIAL IV ONE (09:54)
[2023-07-03] MEDS ORDERED: LIDOCAINE 1% INJ 10MG/ML (20 ML MDV) ONE (09:54)
--- NOTE | 2023-07-03 10:11 | P.PCN ---
Date of Procedure: 07/03/23 Procedure(s) Performed: BRIEF HISTORY: Patient is a 72-year-old, pleasant, white male scheduled for an upper endoscopy as a part of evaluation of dysphagia to solids and pills for the last 2 years duration.. PROCEDURE PERFORMED: Esophagogastroduodenoscopy with biopsy PREOPERATIVE DIAGNOSIS: Dysphagia to solids for the last 2 years duration. IV sedation per anesthesia. PROCEDURE: After informed consent was obtained, the patient was brought into the endoscopy unit. IV sedation was administered by Anesthesia under continuous monitoring. Initially the Olympus GIF-140 video endoscope was inserted into the mouth. Esophagus intubated with mild difficulty suspicious for cricopharyngeal dysfunction. It was gradually advanced into the stomach and duodenum and carefully examined. The bulb of the duodenum appeared normal. in the second portion of the duodenum there was a 5-6 mm flat duodenal polyp identified and multiple biopsies were done from this area. The scope at this time was withdrawn to the stomach, adequately insufflated with air, and upon careful examination, mucosa of the antrum, body, cardia and the fundus appeared normal. The scope was then withdrawn into the esophagus. small hiatal hernia noted. The GE junction was located at 39 cm from the incisors. the 2 mm tongue of [place]'s appearing mucosa just proximal to the GE junction that was biopsied. The esophagus appeared normal. There were no erosions or ulcerations seen. The proximal cervical esophagus was carefully examined and there was mild cricopharyngeal dysfunction noted and the patient tolerated the procedure well. IMPRESSION: 1. Mild cricopharyngeal dysfunction. 2. Small hiatal hernia and short segment Trujillo's esophagus 3. 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 RECOMMENDATIONS: The findings of this examination were discussed with the theresa Ziegler as well as his family. He was advised to follow with the biopsy results. If the biopsy of the duodenal polyp reveals adenoma he can have a repeat upper endoscopy in 6 months. Intermittent dysphagia is likely related to cricopharyngeal dysfunction and recommended soft foods and small bites
[2023-07-03 11:14] VITALS: BP 148/78; PULSE 56; RESP 18
== END 2023-07-03 11:07 | disposition home or self-care (01) ==
LOC: ORWHC2ENDO 08:44
PROVIDERS: ATTEND Internal Medicine Gastroenterology
DX: K31.7 Polyp of stomach and duodenum (principal); K22.70 Barrett's esophagus without dysplasia; K44.9 Diaphragmatic hernia without obstruction or gangrene; K21.00 Gastro-esophageal reflux disease with esophagitis, without bleeding; I10 Essential (primary) hypertension; E78.5 Hyperlipidemia, unspecified; N40.0 Benign prostatic hyperplasia without lower urinary tract symptoms; F41.9 Anxiety disorder, unspecified; Z87.891 Personal history of nicotine dependence; Z90.49 Acquired absence of other specified parts of digestive tract; Z79.899 Other long term (current) drug therapy; Z88.0 Allergy status to penicillin; Z88.2 Allergy status to sulfonamides
CPT/HCPCS: 88305; 43239; J2001; J2704

== ENCOUNTER → 2023-07-10 | Outpatient (CLI) | payer MEDICARE ==
--- NOTE | 2023-07-10 21:15 | MR ---
EXAMINATION TYPE: MR brain and iac wo/w con DATE OF EXAM: 07/10/2023 5:43 PM CLINICAL INDICATION:Male, 72 years old with history of H90.A22 SENSORINEURAL HEARING LOSS; PHH, Left sided hearing issues COMPARISON: None TECHNIQUE: Multi planar, multi sequence imaging was performed through the brain. Specialized thin s equences were obtained through the internal auditory canals. Pre-and post gadolinium sequences were obtained. MR contrast: IV Contrast: 6.5 cc Gadavist FINDINGS: The guevara-white junctions, ventricular system, and cisterns appear unremarkable. Scattered foci of hi gh T2 signal intensity are seen within the periventricular white matter. Midline structures show no a bnormality. Diffusion-weighted imaging shows no evidence of restricted diffusion. The susceptibility weighted images do not reveal any evidence for micro-hemorrhage. The bone marrow signal is within normal limits. Paranasal sinuses and mastoid air cells: Complete opacification the right maxillary sinus. Visualized orbits: Bilaterally aphakia After administration of gadolinium, no abnormal enhancement is seen. The internal auditory canal sequences demonstrate no significant irregularity. The 7th cranial nerve s, 8 cranial nerves, and cerebellar pontine angles appear unremarkable. After the administration marcelino olinium, no abnormal enhancement is seen within the internal auditory canals. Vascular loop: None. IMPRESSION: 1. No evidence of intracranial mass nor acute/subacute CVA. 2. No evidence of internal auditory canal abnormality. 3. Nonspecific white matter changes, likely secondary to small vessel ischemic disease. 4. Complete opacification of right maxillary sinus with suspected retention cyst.
== END | disposition home or self-care (01) ==
LOC: RADMRIMAIN 16:34
PROVIDERS: ATTEND Otolaryngology Otolaryngology/Facial Plastic Surgery
DX: G93.89 Other specified disorders of brain (principal); J34.89 Other specified disorders of nose and nasal sinuses; H90.A22 Sensorineural hearing loss, unilateral, left ear, with restricted hearing on the contralateral side
CPT/HCPCS: 70553; A9585

== ENCOUNTER 2023-08-21 19:51 | Outpatient (CLI) | payer MEDICARE ==
--- NOTE | 2023-09-08 20:28 | P.PCN ---
Date of Procedure: 08/21/23 Operative Findings: Polysomnography report Date of services 08/21/2023 Pertinent history 72-year-old male patient present to the sleep center with chronic fatigue and sleepiness. The patient also reported snoring and apneas by the . The Mazeppa score was at 7. The patient had a Mallampati class II with an overbite. 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 He has hypertension hyperlipidemia and BPH and previous history of colitis Pertinent physical findings The patient's body mass index is 23.5. Height is 5 feet and 6 inches. Weight is 148 pounds. Mazeppa score is at 7 Technical description The patient was studied using a standard complex polysomnography protocol that included recording of the 2 EKG, Central, occipital and frontal EEG, right and left outer canthus EOG, submental EMG, right and left anterior tibialis EMG, respiratory airflow by thermocouple and or pressure/flow transducer, respiratory efforts by abdominal and thoracic PVDF belts, oxygen saturation by cable oximetry. Position by observation synchronized the PSG. Equipment used: [employer]. Sleep architecture The total time in bed was 405 minutes. The total sleep time was 283.5 minutes. The overall sleep efficiency was degraded to be 70%. Latency to sleep onset was 21.5 minutes. Latency to REM sleep was 230.0 minutes. The sleep architecture was catheterized by 29.3% stage I, 55% stage II, 0.2% stage III and 15.5% REM sleep. The wake after sleep onset time was 95 minutes. The total arousal index was 15.9 Respiratory analysis The rest analysis showed a total of 185 obstructive events, of which 0 obstructive apneas, 2 mixed apneas, 103 were obstructive hypopneas. The resulting AHI was 38.7. Note that the patient is disease was worse during REM sleep with an AHI of 51.8. Oxygenation analysis The patient had a baseline pulse ox of 95% while awake. Lowest pulse ox was 75%. This patient spent approximately 12 minutes of the sleep time below pulse ox of 89%. Lowest pulse ox was 75% during REM sleep. Sleep continuity summary The patient had total of 75 arousals with an index of 15.9. The respiratory arousal index was 5.7 Periodic limb movement summary The patient had a total of 181. Recommend activity with an index of 38.3. There was a total of 3 periodic limb movement activity with arousals with an index of 0.6 Cardiac summary Average heart rate was was 51 with a minimum heart rate of 48 and a maximum heart rate of 54 Assessment Severe symptomatic obstructive sleep apnea with an AHI of 38 worse during REM sleep Nocturnal oxygen saturation secondary to above Chronic hypersomnia with an Mazeppa score of 7 Abnormalities sleep architecture with over representation of stage I sleep and diminished delta wave and REM Periodic limb movement activity, not associated with arousals BPH Hyperlipidemia Hypertension Plan Patient is symptomatic obstructive sleep apnea. The patient would benefit from CPAP therapy. The patient will be asked to come into the sleep center to undergo an in lab CPAP titration. Will continue to follow.
== END 2023-08-22 06:00 | disposition home or self-care (01) ==
LOC: 3 N SLEEP 19:51
PROVIDERS: ATTEND Internal Medicine Critical Care Medicine
DX: G47.33 Obstructive sleep apnea (adult) (pediatric) (principal); G47.10 Hypersomnia, unspecified; G47.52 REM sleep behavior disorder; G47.61 Periodic limb movement disorder; E78.5 Hyperlipidemia, unspecified; I10 Essential (primary) hypertension; N40.0 Benign prostatic hyperplasia without lower urinary tract symptoms; G47.36 Sleep related hypoventilation in conditions classified elsewhere; Z88.0 Allergy status to penicillin; Z88.2 Allergy status to sulfonamides; Z79.899 Other long term (current) drug therapy; R53.82 Chronic fatigue, unspecified; Z87.19 Personal history of other diseases of the digestive system
CPT/HCPCS: 95810

== ENCOUNTER 2023-09-24 20:05 | Outpatient (CLI) | payer MEDICARE ==
--- NOTE | 2023-10-06 23:26 | P.PCN ---
Date of Procedure: 09/24/23 Operative Findings: CPAP titration report Date of service is 09/24/2023 72-year-old male patient diagnosed having severe DANIKA with an AHI of 38 worse during REM sleep. Patient has an Cicero score of 7. Patient is coming in for CPAP titration Pertinent physical findings The patient's body mass index is 23.5 with a weight of 148 pounds Technical description The patient was studied using a standard complex polysomnography protocol that included recording of the 2 EKG, Central, occipital and frontal EEG, right and left outer canthus EOG, submental EMG, right and left anterior tibialis EMG, respiratory airflow by thermocouple and or pressure/flow transducer, respiratory efforts by abdominal and thoracic PVDF belts, oxygen saturation by cable oximetry. Position by observation synchronized the PSG. Stepwise CPAP titration was done to eliminate all obstructive respiratory events Equipment used: [employer]. Sleep architecture The total recording duration was 4 and 39.5 minutes. The total sleep time was 204.5 minutes. The sleep efficiency was 46.5%. The latency to sleep onset was 36 minutes and related to REM sleep was 253.5 minutes. The sleep architecture was catheterized by 7.3% stage I, 82.4% stage II, 0% stage III, 10.3% REM sleep. The wake after sleep onset time was 199.0 minutes. Total arousal index was 11.1 Respiratory summary CPAP titration was started initially at a pressure of 5 cm of water pressure was gradually increased by increments of 1 cm to reach a maximum pressure of 10 cm of water. In general, this was successful titration. All sleep stages were encountered including REM sleep. The patient was studied in the supine and nonsupine body position. Based on careful review of the current titration, the treatment was successful and a pressure of 10 cm of water the patient had a complete elimination of the obstructive respiratory events maintaining a saturation above 90%. Sleep continuity summary The patient had a total of 38 arousals with an index of 11.1. Respiratory arousal index was 1.8 Periodic limb movement summary There was a total of 30. Recommended index of 8.8. There were only 4 periodic movement activity with arousals with an index of 1.2 Assessment Severe symptomatic DANIKA with an AHI of 38, worse during REM sleep and the patient underwent a successful CPAP titration. There was elimination of the nocturnal oxygen desaturations. Chronic hypersomnia with an Cicero score of 7 Poor sleep efficiency noted during the current titration BPH Hypertension Hyperlipidemia Plan Initiate CPAP therapy at a pressure of 10 cm of water with a C-Flex of 3. The patient is going to be provided an AirFit F20 fullface mask medium size. The patient was seen back in the office in 30 to 90 days to assess clinical response and compliance we will make further adjustment accordingly. Will continue to follow.
== END 2023-09-25 05:30 | disposition home or self-care (01) ==
LOC: 3 N SLEEP 20:05
PROVIDERS: ATTEND Internal Medicine Critical Care Medicine
DX: G47.33 Obstructive sleep apnea (adult) (pediatric) (principal); G47.10 Hypersomnia, unspecified; N40.0 Benign prostatic hyperplasia without lower urinary tract symptoms; I10 Essential (primary) hypertension; E78.5 Hyperlipidemia, unspecified; G47.36 Sleep related hypoventilation in conditions classified elsewhere; Z88.0 Allergy status to penicillin; Z88.2 Allergy status to sulfonamides; Z79.899 Other long term (current) drug therapy
CPT/HCPCS: 95811

== ENCOUNTER 2024-01-10 14:00 | Day surgery (SDC) | payer MEDICARE ==
[2024-01-10] MEDS ORDERED: LACTATED RINGERS 1,000 ML BAG ONE (14:50)
[2024-01-10] MEDS ORDERED: PROPOFOL 10 MG/ML 20 ML VIAL IV ONE (15:15)
[2024-01-10] MEDS ORDERED: LIDOCAINE 1% INJ 10MG/ML (20 ML MDV) ONE (15:15)
--- NOTE | 2024-01-17 15:55 | PCN ---
PROCEDURE NOTE REQUESTING PHYSICIAN: Dr. Hensley BRIEF HISTORY: The patient is a 73-year-old pleasant white male, scheduled for an upper endoscopy as part of followup of duodenal polyp that was noted on previous upper endoscopy 6 months ago. He had an upper endoscopy in June of 2023 that revealed a 5-mm duodenal polyp in the second part of the duodenum and multiple biopsies were done from this area which revealed adenoma. He is scheduled for a followup upper endoscopy for complete polypectomy. PROCEDURE PERFORMED: EGD with biopsy. PREOPERATIVE DIAGNOSIS: Followup duodenal polyp. ANESTHESIA: IV sedation per Anesthesia. DESCRIPTION OF PROCEDURE: After informed consent was obtained from the patient, he was brought in to the endoscopy unit. IV conscious sedation was administered by Anesthesia and continuous monitoring initially. The Olympus CF-180 video endoscope was then inserted into the mouth and esophagus, intubated without any difficulty and was gradually advanced into the stomach and duodenum and carefully examined. In the second part of the duodenum, there was a 5 mm polyp that was removed by cold biopsy. Scope was then withdrawn through the stomach adequately, insufflated with air, and upon careful examination, mucosa of antrum, body, cardia and fundus appeared normal. Scope was then withdrawn through the esophagus, GE junction was located at 39 cm from the incisors. There was a small hiatal hernia noted. Rest of the esophagus appeared normal. The patient tolerated the procedure well. IMPRESSION: 1. A 5-mm duodenal polyp in the second part of the duodenum, status post multiple biopsies. 2. Small hiatal hernia. RECOMMENDATIONS: Findings of this examination were discussed with the patient as well as his family. He was advised to follow up with the biopsy results and will plan a repeat upper endoscopy in 1 year. MMODL / IJN: [id number] /
== END 2024-01-10 16:20 ==
LOC: ORWHC2ENDO 14:00
PROVIDERS: ATTEND Internal Medicine Gastroenterology
DX: K31.7 Polyp of stomach and duodenum (principal); K44.9 Diaphragmatic hernia without obstruction or gangrene; I10 Essential (primary) hypertension; G47.33 Obstructive sleep apnea (adult) (pediatric); Z88.2 Allergy status to sulfonamides; Z88.0 Allergy status to penicillin; Z79.899 Other long term (current) drug therapy
CPT/HCPCS: 43239; 88305

== ENCOUNTER → 2024-04-15 | Outpatient (CLI) | payer MEDICARE ==
--- NOTE | 2024-04-15 17:32 | US ---
EXAMINATION TYPE: US carotid duplex BILAT DATE OF EXAM: 04/15/2024 COMPARISON: US(12/20/2011) CLINICAL INDICATION: Male, 73 years old with history of R55 SYNCOPE AND COLLAPSE; Additional History: .... TECHNIQUE: Grayscale, color Doppler and spectral Doppler evaluation of the bilateral carotid systems and vertebral arteries. Indirect Doppler criteria was utilized. FINDINGS: EXAM MEASUREMENTS: RIGHT: Peak Systolic Velocity (PSV) cm/sec ----- Right CCA: 62.7 ----- Right ICA: 71.2 ----- Right ECA: 77.2 ICA/CCA ratio: 1.1 RIGHT: End Diastole cm/sec ----- Right CCA: 12.1 ----- Right ICA: 13.6 ----- Right ECA: 0.0 LEFT: Peak Systolic Velocity (PSV) cm/sec ----- Left CCA: 60.9 ----- Left ICA: 63.6 ----- Left ECA: 108.4 ICA/CCA ratio: 1.0 LEFT: End Diastole cm/sec ----- Left CCA: 8.3 ----- Left ICA: 21.9 ----- Left ECA: 9.5 VERTEBRALS (direction of flow): Right Vertebral: Antegrade Left Vertebral: Antegrade Rhythm: Normal SUEDE CLEANER NOTES: no elevated velocities seen Color Doppler imaging shows patency with blood flow throughout the carotid artery. Spectral waveforms are within normal limits. IMPRESSION: Right: Less than 50% stenosis of the carotid bifurcation. Normal (no stenosis)=ICA PSV < 125 cm/s: ra armida < 2.0: ICA EDV<40 cm/s. Left: Less than 50% stenosis of the carotid bifurcation. Normal (no stenosis)=ICA PSV < 125 cm/s: rat io < 2.0: ICA EDV<40 cm/s. Criteria for Assigning % of Stenosis / Diameter reduction (Estimation based on the indirect measurements of the internal carotid artery velocities (ICA PSV). 1. Normal (no stenosis)=ICA PSV < 125 cm/s: ratio < 2.0: ICA EDV<40 cm/s. 2. Less than 50% stenosis=ICA PSV < 125 cm/s: ratio < 2.0: ICA EDV<40 cm/s. 3. 50 to 69% stenosis=ICA PSV of 125 to 230 cm/s: ration 2.0 ? 4.0: ICA EDV 40-100 cm/s. 4. Greater than 70% stenosis to near occlusion= ICA PSV > 230 cm/s: ratio > 4.0: ICA EDV > 100 cm/s. 5. Near occlusion= ICA PSV velocities may be low or undetectable: variable ratio and ICA EDV. 6. Total occlusion=unable to detect flow. [facility], , 04/15/2024 5:30 PM
--- NOTE | 2024-04-16 10:49 | BD ---
EXAMINATION TYPE: Axial Bone Density DATE OF EXAM: 04/15/2024 CLINICAL HISTORY: 73 years old Male. ICD-10 CODE: M85.88 OTH DISRD OF BONE , Additional History: Height: 66 Weight: 144.7 FRAX RISK QUESTIONS: Alcohol (3 or more units per day): no Family History (Parent hip fracture): no Glucocorticoids (More than 3mos): no (Ex: prednisone, prednisolone, methylprednisolone, dexamethasone, and hydrocortisone). History of Fracture in Adulthood: no Secondary Osteoporosis: 1. Type 1 Diabetes: no 2. Hyperthyroidism: no 3. Menopause before 45: na 4. Malnutrition: no 5. Chronic liver disease: no Rheumatoid Arthritis: no Current Tobacco Use: no RISK FACTORS HISTORY OF: Hip Fracture (Right/Left): no Spine Fracture: no History of Wrist Fracture: no Surgery to Spine/Hip(right/left)/Wrist (right/left): no MEDICATIONS: Thyroid Medications: no Osteoporosis Medications: no EXAM MEASUREMENTS: Bone mineral densitometry was performed using the [employer]. Bone mineral density as measured about the Lumbar spine is: ----- L1-L4(G/cm2): 1.101 T Score Values are as follows: ----- L1: -1.3 ----- L2: -1.0 ----- L3: -1.0 ----- L4: 0.3 ----- L1-L4: -0.7 Z Score Values are as follows: ----- L1: -0.5 ----- L2: -0.4 ----- L3: -0.3 ----- L4: 1.0 ----- L1-L4: 0.0 Bone mineral density has: decreased -0.4 % since study of: 12/10/2013 Bone mineral density about the R hip (g/cm2): 0.798 Bone mineral density about the L hip (g/cm2): 0.814 T Score values are as follows: -----R Neck: -2.3 -----L Neck: -2.2 -----R Total: -1.7 -----L Total: -1.5 Z Score values are as follows: -----R Neck: -1.0 -----L Neck: -1.0 -----R Total: -1.0 -----L Total: -0.9 07ne mineral density has: decreased -11.2 % since study of: Bone mineral density about the R Wrist (g/cm2): Bone mineral density about the L Wrist (g/cm2): T Score values are as follows: -----Dist. R+U: -----Prox. R+U: -----Radius total: Z Score values are as follows: -----Dist. R+U: -----Prox. R+U: -----Radius total: Bone mineral density has: % since study of: FRAX%s: The graph provided illustrates a 14.8 for a major osteoporotic fx and a 6.6 fx hips probab ility for fx in 10 years time. IMPRESSION: Osteopenia (T Score between -2.5 and -1). There is slightly increased risk of fracture and the patient may be considered for treatment. Re-Screen 2-5 years. NOTE: T-SCORE=SD OF THE YOUNG ADULT MEAN. [facility], , 04/16/2024 10:47 AM
== END | disposition home or self-care (01) ==
LOC: RADBDWWP 16:02
PROVIDERS: ATTEND Internal Medicine Geriatric Medicine
DX: R55 Syncope and collapse (principal); M85.88 Other specified disorders of bone density and structure, other site
CPT/HCPCS: 77080; 93880